=== PATIENT | female | born 1980 | race Caucasian/White ===

== ENCOUNTER → 2017-10-10 13:37 | Outpatient (REF) | payer MEDICARE, SELFPAY ==
[2017-10-10 18:44] LABS: TSH (W/Ref FT4) 1.55 uIU/mL (0.358-3.74)
== END ==
LOC: NCHCN 13:37
PROVIDERS: PCP Nurse Practitioner Family; Visit Provider Nurse Practitioner
DX: E03.9 Hypothyroidism, unspecified (principal)
CPT/HCPCS: 84443

== ENCOUNTER 2019-01-29 21:41 | Emergency (ER) | payer MEDICARE, SELFPAY ==
[2019-01-29 21:48] VITALS: BP 106/69; PULSE 89; RESP 16; TEMP 36.8; O2SAT 98
--- NOTE | 2019-01-29 21:56 | W.ED.GENAD ---
Discharge Plan Disposition Patient Disposition: HOME Discharge Details Chief Complaint: Orthopedic Clinical Impression: Sprain of left shoulder Primary Care Provider: Amanda Arias ED Provider: Aniceto Rutledge Home Meds and New Rx's Prescriptions: No Action multivitamin [Daily Multi-Vitamin] 1 EACH tablet 1 tab PO DAILY RF: 0 montelukast 10 MG tablet 10 mg PO DAILY RF: 0 levothyroxine [Synthroid] 50 MCG tablet 50 mcg PO DAILY RF: 0 Discharge Instructions Instructions: Shoulder Sprain (ED) Additional Instructions: Your x-rays were negative here in the emergency department. Most likely soft tissue injury possible rotator cuff involvement. It is very important that you ice the affected area. Take Tylenol 500 mg 2 tabs every 8 hours for pain. You can also take ibuprofen 200 mg 3 pills every 8 hours for pain. You should use simple sling for the next 24 to 48 hours for comfort. Do not use this longer than 48 hours. If your pain persist despite conservative therapy at home contact orthopedics for follow-up. Referrals: Gary Choe MD [ [facility] STAFF PHYSICIAN] - 2 weeks Medical Decision Making This is a nontoxic-appearing 39-year-old female presenting to the emergency department with a left shoulder injury status post slipping on the ice. No head or neck trauma. Vital signs stable and neurovascularly intact on exam. Physical exam demonstrate point tenderness along the posterior lateral aspect of the left shoulder. She does have the ability to gently actively range the left shoulder. X-rays are negative for acute fracture. Most likely ligamentous/tendon sprain. Discussed the utilization of a simple sling for the next 24 to 48 hours. Motrin and Tylenol pain regimens discussed. She should follow-up with orthopedics should her pain persist. HPI General Date/Time Provider Initiated Documentation: 01/29/19 21:56. HPI Narrative: Patient is a 39-year-old female with no significant past medical history who presents to the emergency department with a left shoulder injury. Patient states that she fell slipping on the ice landing on her left shoulder. She denies any head injury or LOC. No neck pain. She has been able to move the left shoulder however it is quite tender. She denies any numbness or tingling in the hand. Related Data Home Medications Medication Instructions Recorded Confirmed levothyroxine [Synthroid] 50 mcg PO DAILY 06/15/13 01/29/19 montelukast 10 mg PO DAILY 06/15/13 01/29/19 multivitamin [Multi Vitamin Daily] 1 tab PO DAILY 06/15/13 01/29/19 Allergies Allergy/AdvReac Type Severity Reaction Status Date / Time amoxicillin [Amoxicillin] AdvReac Intermediate Skin Rash Unverified 06/15/13 22:59 Penicillins AdvReac Intermediate Skin Rash Unverified 06/15/13 22:59 General Stated Complaint: Orthopedic PA: 4 Review of Systems ENT Ears, Nose, Mouth, and Throat: Denies dizziness and Denies neck pain Musculoskeletal Musculoskeletal: Denies back pain, Denies deformity, Denies joint swelling, Reports limited range of motion, Denies neck pain, Denies numbness, Denies stiffness and Denies tingling Neurologic Neurologic: Denies dizziness, Denies numbness and Denies tingling Hematologic/Lymphatic Hematologic/Lymphatic: Denies easy bleeding and Denies easy bruising PFSH Social History Smoking/Tobacco Use Status: Never Alcohol Intake: never Drug use: Never Do you feel safe at home: Yes Do you feel safe in your relationship?: Yes Exam Const General: cooperative, healthy appearing, comfortable and no acute distress Orientation: alert and oriented x3 HENMT Head: normal to inspection, no palpable skull fracture, normocephalic and atraumatic Eyes General: appearance normal, both eyes and all related structures Neck Neck: normal visual inspection, full ROM and trachea midline Chest Chest: normal inspection of the chest and normal palpation of entire chest wall Resp Effort & Inspection: normal respiratory effort and able to speak in complete sentences Cardio Rate: regular rate Pulses: radial pulses present and normal peripheral pulses Back/Spine/Pelvis Cervical Spine: normal cervical lordosis, cervical ROM normal, No cervical muscular tenderness and No cervical spinal tenderness Skin Trauma: no lacerations or abrasions Neuro Motor: muscle tone normal throughout Sensory Exam: no sensory deficits noted Extrem Left upper extremity: shoulder/upper arm Details: inspection abnormal, tenderness Location: of the proximal humerus and over the biceps tendon, axillary nerve sensory function normal and abnormal ROM Details: pain with active ROM; no swelling Course Vital Signs Vital signs: Vital Signs Temperature 36.8 C 01/29/19 21:48 Pulse 89 01/29/19 21:48 Respiratory Rate 16 01/29/19 21:48 Blood Pressure 106/69 01/29/19 21:48 Pulse Oximetry 98 01/29/19 21:48 Temperature 36.8 C 01/29/19 21:48 Pulse 89 01/29/19 21:48 Respiratory Rate 16 01/29/19 21:48 Respiratory Effort 01/29/19 21:50 Blood Pressure 106/69 01/29/19 21:48 Blood Pressure Position Supine 01/29/19 21:48 Pulse Oximetry 98 01/29/19 21:48 Oxygen Delivery Method Room Air 01/29/19 21:48 Oxygen Flow Rate 0 01/29/19 21:48 End Tidal Co2 1 01/29/19 21:48
--- NOTE | 2019-01-29 22:29 | DI.RAD_ITS ---
EXAM: XR SHOULDER LT COMPLETE 2+V CLINICAL HISTORY: left posteriolateral shoulder pain s/p fall. TECHNIQUE: 2D digital imaging was performed. COMPARISON: No exams were available for comparison FINDINGS: BONES: No acute fracture is present. No bony destructive lesion is seen. JOINTS: No dislocation present. SOFT TISSUE: Normal. IMPRESSION: Unremarkable radiographs of the left shoulder.
--- NOTE | 2019-01-29 22:48 | DI.VRAD_ITS ---
PROCEDURE INFORMATION: Exam: XR Left Shoulder Exam date and time: 01/29/2019 9:57 PM Age: 39 years old Clinical history: Pain and injury or trauma; Fall; Initial encounter; Blunt trauma (contusions or hematomas; Shoulder; Right TECHNIQUE: Imaging protocol: XR Left shoulder. Views: 2 or more views. COMPARISON: No relevant prior studies available. FINDINGS: Bones/joints: No suspicious osseous lytic or blastic lesion. No acute fracture or dislocation. Left acromioclavicular and coracoclavicular interval is within normal limits. Soft tissues: Normal. IMPRESSION: Unremarkable LEFT shoulder radiographs. Dictated and Authenticated by: Prasanth Kumar MD. Ordering:KARON Moreland MD
== END 2019-01-29 22:45 | disposition home or self-care (01) ==
PROVIDERS: Emergency Provider Physician Assistant; PCP Nurse Practitioner
DX: S43.402A Unspecified sprain of left shoulder joint, initial encounter (principal); W00.0XXA Fall on same level due to ice and snow, initial encounter
CPT/HCPCS: 99283; 73030; L3670

== ENCOUNTER 2019-03-30 11:49 | Outpatient (REF) | payer MEDICARE, SELFPAY ==
[2019-03-30 19:55] LABS: TSH (W/Ref FT4) 10.32 uIU/mL (0.36-3.74)
[2019-03-30 20:20] LABS: FREE T4 1.21 ng/dL (0.76-1.46)
== END 2019-03-30 12:09 ==
LOC: NCHCN 11:49
PROVIDERS: PCP Nurse Practitioner; Visit Provider Nurse Practitioner
DX: E03.9 Hypothyroidism, unspecified (principal)
CPT/HCPCS: 84439; 84443

== ENCOUNTER 2019-12-04 17:59 | Emergency (ER) | payer MEDICARE, MEDICAID, SELFPAY ==
--- NOTE | 2019-12-04 18:05 | ED.GENADUL_ITS ---
Discharge Plan Disposition Patient Disposition: HOME Condition: Improving Discharge Details Clinical Impression: Acute bronchitis, Rash Primary Care Provider: Amanda Arias ED Provider: Maryellen Veal Home Meds and New Rx's Prescriptions: New prednisone 20 mg tablet See Rx Instructions .ROUTE .COMPLEX Qty: 12 RF: 0 Continued multivitamin [Daily Multi-Vitamin] 1 EACH tablet 1 tab PO DAILY RF: 0 montelukast 10 MG tablet 10 mg PO DAILY RF: 0 levothyroxine [Synthroid] 50 MCG tablet 50 mcg PO DAILY RF: 0 Discharge Instructions Instructions: Acute Bronchitis (ED), Acute Rash (ED) Additional Instructions: Continue your regular medications as directed. Use the albuterol inhaler as needed and directed for shortness of breath, wheezing or cough. Take the steroids until finished. You can use [id number] topical hydrocortisone as directed for itching of your rash and obmz-[id number] topical antibiotic ointment for pain, redness or swelling associated with the rash. Follow-up with your primary care doctor in 1 week. Return to the emergency department with any worsening or new concerning symptoms. Discharge Data Discharge Date/Time-TO BE ENTERED AT DEPARTURE: 12/04/19 19:38 Discharge Physician: Maryellen Vela Medical Decision Making 1819 -- 39-year-old female with a history of asthma and hypothyroidism presents for cough with clear sputum, shortness of breath, and sensation of needles in her chest with coughing and rash on her hands and feet. Vitals within normal limits. She appears nontoxic. She is speaking in full sentences without signs of respiratory distress. She has scattered wheezing and rhonchi. She has a barely noticeable papule to the dorsal aspect of her right hand and a crusted healing papule to the plantar surface of her left midfoot. No evidence of cellulitis. She has no oral lesions making coxsackievirus less likely. Discussed with patient that her symptoms can be consistent with a viral syndrome, also consider acute bronchitis, pneumonia. She is PERC negative and history and presentation not consistent with ACS or dissection. Will give a DuoNeb, p.o. steroids, IM Toradol and check an EKG, chest x-ray and reassess. 1920 --chest x-ray negative for acute disease. EKG notes a rate of 81, sinus, T wave inversion in III, V3, no STEMI, nondiagnostic. Patient reassessed and she feels much better. We will send home with an inhaler as well as a prescription for prednisone. As she has no reported fever, a non- smoker and a negative chest x-ray, will hold on antibiotics at this time. Discussed with patient that she can try [id number] topical Benadryl or hydrocortisone for her rash but this appears nonspecific at this time. Advised to follow up with the primary care doctor for re-evaluation. Usual and customary return precautions given prior to discharge. Medical Records Medical records reviewed: Yes I reviewed the patient's medical records. Imaging Data Radiologic Study: Radiologist's impression: XR CHEST 2V PA LATERAL CLINICAL HISTORY: cough, sob, r/o acute disease TECHNIQUE: 2D digital imaging was performed. COMPARISON: No exams were available for comparison FINDINGS: MEDIASTINUM: Normal. HEART: Normal. PULMONARY VASCULATURE: Normal. LUNGS: Clear. PLEURAL SPACE: No pleural effusion or pneumothorax. BONE:Normal. OTHER FINDINGS:Normal. IMPRESSION: No acute pulmonary findings. Lab Data Lab results reviewed: Yes I reviewed the patient's lab results. ECG Data Attestation: I personally reviewed and interpreted this ECG (s) as follows: Interpretation: Rate of 81, sinus, T wave inversion in 3 and V3. No old EKG to compare. No acute ST elevation or depression. ME 140. QRS 77. QTc 410. HPI General Mode of arrival: ambulatory . Date/Time Provider Initiated Documentation: 12/04/19 18:00 . Limitations to Documentation: no limitations . Information obtained by: patient . HPI Narrative: Patient is a 39-year-old female with a history of asthma and hypothyroidism who presents for cough with clear sputum, shortness of breath and sensation of feeling needles in her chest with coughing. She also noted a rash to her right hand and left foot and states she was concerned that she may have whooping cough due to her rash and high- pitched cough. She denies any fever, headache, vomiting, diarrhea, abdominal pain, recent travel or recent known sick contacts. She is unsure of her immunization status. Related Data Home Medications Medication Instructions Recorded Confirmed levothyroxine [Synthroid] 50 mcg PO DAILY 06/15/13 12/04/19 montelukast 10 mg PO DAILY 06/15/13 12/04/19 multivitamin [Daily Multi-Vitamin] 1 tab PO DAILY 06/15/13 12/04/19 prednisone See Rx Instructions .ROUTE 12/04/19 .COMPLEX #12 tab Previous Rx's Medication Instructions Recorded prednisone See Rx Instructions .ROUTE 12/04/19 .COMPLEX #12 tab Allergies Allergy/AdvReac Type Severity Reaction Status Date / Time loratadine Allergy Unverified 12/04/19 18:18 amoxicillin [Amoxicillin] AdvReac Intermediate Skin Rash Unverified 12/04/19 18:17 Penicillins AdvReac Intermediate Skin Rash Unverified 12/04/19 18:17 General PA: 4 Review of Systems All systems reviewed & are unremarkable except as noted in HPI and below Constitutional Constitutional: Reports as per HPI, Denies chills and Denies fever(s) Eyes Eyes: Denies blurry vision ENT Ears, Nose, Mouth, and Throat: Denies dizziness, Denies sore throat and Denies throat swelling Cardiovascular Cardiovascular: Denies chest pain and Reports dyspnea Respiratory Respiratory: Reports cough and Reports dyspnea Gastrointestinal Gastrointestinal: Denies abdominal pain, Denies diarrhea and Denies vomiting Genitourinary Genitourinary: Denies hematuria and Denies dysuria Musculoskeletal Musculoskeletal: Denies back pain and Denies numbness Integumentary/Breasts Skin/Breast: Denies lesions and Denies rash Neurologic Neurologic: Denies dizziness, Denies localized weakness and Denies numbness Allergic/Immunologic Allergic/Immunologic: Denies throat swelling [facility] Medical History (Updated 12/04/19 @ 19:24 by Maryellen Vela DO) Asthma Hypothyroidism Surgical History (Updated 12/04/19 @ 18:50 by Maryellen Vela DO) H/O section History of knee surgery Social History Smoking/Tobacco Use Status: Never Alcohol Intake: never Drug use: Never Do you feel safe at home: Yes Do you feel safe in your relationship?: Yes Exam Const General: cooperative, healthy appearing and no acute distress HENMT Head: normal to inspection Ears: hearing grossly normal bilaterally, external ears normal and TM's normal bilaterally General nose exam: external nose normal Face and sinus: normal facial exam Mouth: oral mucosae normal Throat: posterior oropharynx normal Eyes General: appearance normal, both eyes and all related structures Neck Neck: normal visual inspection Resp Effort & Inspection: normal respiratory effort and able to speak in complete sentences Auscultation: rhonchi (minimal scattered) and wheezes scattered wheezes Cardio Rate: regular rate Rhythm: regular rhythm GI Inspection: normal to inspection Palpation: soft, no guarding, no masses and nontender Skin General skin exam: no rashes or lesions noted Neuro General: patient alert, patient awake and patient oriented x3 Motor: muscle tone normal throughout Extrem General: normal to inspection and full ROM Psych Appearance: grossly normal Affect: normal affect
[2019-12-04 18:14] VITALS: BP 110/66; PULSE 94; RESP 16; TEMP 36.4; O2SAT 97
--- NOTE | 2019-12-04 18:30 | RT.EKG_ITS ---
APPROVED REPORT Exam: Resting ECG Patient Location: E HR:81 bpm ECG Measurements Heart Rate 81 AXIS NE 140 P 35 QRSd 77 QRS -3 QT 353 T -4 QTc 410 Conclusion Sinus rhythm...normal P axis, V-rate 60- 99 Low voltage, precordial leads...precordial leads <1.0mV. T wave inversion in III, V3. No STEMI. I have reviewed and interpreted ECG and agree with software generated interpretation. Nonspecific T abnormalities, anterior leads...T <-0.10mV, V2-V4
[2019-12-04] MEDS: predniSONE 20 MG TAB 60 MG PO (18:42)
--- NOTE | 2019-12-04 18:57 | DI.RAD_ITS ---
EXAM: XR CHEST 2V PA LATERAL CLINICAL HISTORY: cough, sob, r/o acute disease TECHNIQUE: 2D digital imaging was performed. COMPARISON: No exams were available for comparison FINDINGS: MEDIASTINUM: Normal. HEART: Normal. PULMONARY VASCULATURE: Normal. LUNGS: Clear. PLEURAL SPACE: No pleural effusion or pneumothorax. BONE:Normal. OTHER FINDINGS:Normal. IMPRESSION: No acute pulmonary findings. DATA REPOSITORY: RADIATION DOSE DELIVERED:
[2019-12-04 19:00] VITALS: PULSE 94; RESP 16; RESP 4; O2SAT 97
[2019-12-04] MEDS: Albuterol/Ipratropium 3 ML UPD VIAL UPD (19:00)
--- NOTE | 2019-12-04 19:05 | DI.VRAD_ITS ---
PROCEDURE INFORMATION: Exam: XR Chest, 2 Views Exam date and time: 12/04/2019 6:58 PM Age: 39 years old Clinical indication: Cough and shortness of breath TECHNIQUE: Imaging protocol: XR of the chest Views: 2 views. COMPARISON: No relevant prior studies available. FINDINGS: Lungs: Unremarkable. No consolidation. Pleural space: Unremarkable. No pleural effusion. No pneumothorax. Heart/Mediastinum: Unremarkable. No cardiomegaly. Bones/joints: Unremarkable. IMPRESSION: No acute findings. Dictated and Authenticated by: Malcolm Gloria MD. Ordering:ALEXANDRE Bojorquez MD
[2019-12-04] MEDS: Ketorolac 60 MG/2 ML VIAL IM (19:06)
[2019-12-04] MEDS: Inhaler, Assist Device 1 EACH MC (19:40)
== END 2019-12-04 19:38 | disposition home or self-care (01) ==
PROVIDERS: Emergency Provider Physician Assistant; PCP Nurse Practitioner
DX: J44.0 Chronic obstructive pulmonary disease with (acute) lower respiratory infection (principal); J20.9 Acute bronchitis, unspecified; J45.909 Unspecified asthma, uncomplicated; R21 Rash and other nonspecific skin eruption
CPT/HCPCS: 93005; 94640; 96372; 99284; 71046; 93010; 99285; J1885; J7512; J7620

== ENCOUNTER 2019-12-16 15:07 | Outpatient (REF) | payer MEDICARE, MEDICAID, SELFPAY ==
[2019-12-16 19:45] LABS: Glucose 107 mg/dL (74-106); TSH (W/Ref FT4) 4.08 uIU/mL (0.36-3.74)
[2019-12-16 20:15] LABS: FREE T4 1.03 ng/dL (0.76-1.46)
== END 2019-12-16 15:27 ==
LOC: NCHCN 15:07
PROVIDERS: PCP Nurse Practitioner; Visit Provider Nurse Practitioner
DX: Z13.1 Encounter for screening for diabetes mellitus (principal); E03.9 Hypothyroidism, unspecified
CPT/HCPCS: 82947; 84439; 84443

== ENCOUNTER 2020-11-07 16:27 | Outpatient (REF) | payer MEDICARE, MEDICAID, SELFPAY ==
[2020-11-07 20:44] LABS: TSH 2.37 uIU/mL (0.36-3.74)
== END 2020-11-07 16:28 | disposition home or self-care (01) ==
LOC: NCHCN 16:27
PROVIDERS: PCP Nurse Practitioner; Visit Provider Nurse Practitioner
DX: E03.9 Hypothyroidism, unspecified (principal)
CPT/HCPCS: 84443

== ENCOUNTER 2021-10-10 19:27 | Emergency (ER) | payer MEDICARE, MEDICAID, SELFPAY ==
[2021-10-10 19:43] VITALS: BP 100/83; PULSE 88; RESP 18; TEMP 36.3; O2SAT 98
--- NOTE | 2021-10-10 20:20 | W.ED.GENAD ---
Discharge Plan Disposition Patient Disposition: HOME Condition: Stable Discharge Details Clinical Impression: Conjunctivitis Primary Care Provider: Amanda Arias ED Provider: Mitch Castaneda Home Meds and New Rx's Prescriptions: New polymyxin B sulf-trimethoprim 10,000 unit- 1 mg/mL drops 1 drp ophthalmic (eye) Q3H 7 Days Qty: 10 0RF Rx Instructions: while awake; do not exceed 6 doses in 24 hours No Action multivitamin [Daily Multi-Vitamin] 1 EACH tablet 1 tab PO DAILY Label Comments: pt no longer taking 01/29/19 montelukast 10 MG tablet 10 mg PO DAILY levothyroxine [Synthroid] 50 MCG tablet 50 mcg PO DAILY prednisone 20 mg tablet See Rx Instructions .ROUTE .COMPLEX Qty: 12 0RF Rx Instructions: Take 3 tabs daily for 2 days, then 2 tabs daily for 2 days, then 1 tab daily for 2 days Discharge Instructions Instructions: Conjunctivitis (ED) Additional Instructions: You may continue to use rcbx-wfb-sglgusy eyedrops and take ibuprofen as needed for discomfort. You may have viral or allergenic conjunctivitis given your exam today. You may hold off on the antibiotics for the next 24 to 48 hours to see if you improve with rbis-fut-xgfcqaa medication. If you notice any new or significant worsening of symptoms please start the antibiotics immediately and for any further concerns feel free to follow-up with your primary care provider or return to the emergency department. Referrals: Amanda Arias [Primary Care Provider] - (As needed for reassessment) Discharge Data Discharge Date/Time-TO BE ENTERED AT DEPARTURE: 10/10/21 20:28 Medical Decision Making Patient presenting to the emergency department for chief complaint of conjunctivitis. Patient has a red irritated right eye that started this morning. Patient patient denies any other systemic symptoms. Physical exam is consistent with conjunctivitis of right eye. No purulent drainage noted, no orbital cellulitis, EOMs intact without pain, exam otherwise unremarkable. Will recommend patient to take ibuprofen for discomfort along with use rqvv-yov-lpaqyfp drops. Patient does not use contact lenses. We will send in prescription for antibiotic but did not inform patient that she could wait 24 to 48 hours as I suspect that this could be viral or allergenic in nature given overall mild appearance. After discussion of diagnosis and plan of care patient has no further needs, questions, or concerns and states clear understanding to return to the emergency department for any worsening symptoms. This documentation was generated using [employer] dictation system, please disregard any oddities of phrase or misspellings. HPI General Mode of arrival: ambulatory. Date/Time Provider Initiated Documentation: 10/10/21 19:50. Limitations to Documentation: no limitations. Information obtained by: patient and RN notes reviewed. History of Present Illness 41 year old F presents to the emergency department with the chief complaint of right eye reddness, described as mild, with intensity rated at 1. Quality is described as aching, and is localized to the eyes and right. Patient reports no radiation. Patient started experiencing this hour(s) (12) and it has been constant. No relieving factors improve symptom(s), No exacerbating factors reported . Patient notes no other symptoms.. Patient did receive the following treatments prior to arrival, other (OTC drops) Related Data Home Medications Medication Instructions Recorded Confirmed levothyroxine 50 mcg tablet 50 mcg PO DAILY 06/15/13 12/04/19 (Synthroid) montelukast 10 mg tablet 10 mg PO DAILY 06/15/13 12/04/19 multivitamin (Daily Multi-Vitamin 1 tab PO DAILY 06/15/13 12/04/19 tablet) prednisone 20 mg tablet See Rx Instructions .Route 12/04/19 .COMPLEX #12 tabs polymyxin B sulfate 10,000 1 drp ophthalmic (eye) Q3H 7 days 10/10/21 unit-trimethoprim 1 mg/mL eye drops #10 mL Previous Rx's Medication Instructions Recorded prednisone 20 mg tablet See Rx Instructions .Route 12/04/19 .COMPLEX #12 tabs polymyxin B sulfate 10,000 1 drp ophthalmic (eye) Q3H 7 days 10/10/21 unit-trimethoprim 1 mg/mL eye drops #10 mL Allergies Allergy/AdvReac Type Severity Reaction Status Date / Time loratadine Allergy Unverified 12/04/19 18:18 amoxicillin [Amoxicillin] AdvReac Intermediate Skin Rash Unverified 12/04/19 18:17 Penicillins AdvReac Intermediate Skin Rash Unverified 12/04/19 18:17 General Stated Complaint: EyeProblem AP: 4 Review of Systems Narrative: 6 systems reviewed and unremarkable except what is marked below. Constitutional Constitutional: Denies chills, Denies fever(s) and Denies headache(s) Eyes Eyes: Reports as per HPI, Denies diplopia, Reports eye discharge, Reports irritation, Reports itchy eyes and Denies other visual disturbances ENT Ears, Nose, Mouth, and Throat: Denies otalgia, Denies facial pain, Denies headache(s), Denies nasal congestion and Denies nasal discharge Neurologic Neurologic: Denies headache(s) Allergic/Immunologic Allergic/Immunologic: Reports itchy eyes PFSH All Active Problems (Updated 10/10/21 @ 20:22 by Mitch Castaneda NP) Conjunctivitis (Acute) Medical History (Updated 10/10/21 @ 20:22 by Mitch Castaneda NP) Asthma Hypothyroidism Surgical History (Updated 12/04/19 @ 18:50 by Maryellen Vela DO) H/O section History of knee surgery Social History Smoking/Tobacco Use Status: Never Smoking risk assessment performed?: Yes Alcohol Intake: never Drug use: Never Substance use type: does not use Do you feel safe at home: Yes Do you feel safe in your relationship?: Yes Exam Const General: cooperative, no acute distress and not ill appearing Orientation: alert, awake and oriented x3 HENMT Head: normal to inspection Ears: hearing grossly normal bilaterally Eyes Visual Robledo: normal visual robledo by confrontation Alignment and Position: alignment normal Periorbital: periorbital findings normal Eyelids: eyelids normal Conjunctivae: conjunctival abnormality right conjunctival injection and discharge other (clear watery) Cornea: corneas normal Pupils: PERRL EOM: EOM intact bilaterally Resp Effort & Inspection: normal respiratory effort, able to speak in complete sentences and no respiratory distress Skin General skin exam: no rashes or lesions noted Neuro General: patient alert, patient awake, patient oriented x3, moves all extremities and no focal motor deficits Sensory Exam: no sensory deficits noted Course Vital Signs Vital signs: Vital Signs Temperature 36.3 C L 10/10/21 19:43 Pulse 88 10/10/21 19:43 Respiratory Rate 18 10/10/21 19:43 Blood Pressure 100/83 10/10/21 19:43 Pulse Oximetry 98 10/10/21 19:43 Temperature 36.3 C L 10/10/21 19:43 Temperature Source Rectal 10/10/21 19:43 Pulse 88 10/10/21 19:43 Respiratory Rate 18 10/10/21 19:43 Blood Pressure 100/83 10/10/21 19:43 Blood Pressure Position Sitting 10/10/21 19:43 Pulse Oximetry 98 10/10/21 19:43 Oxygen Delivery Method Room Air 10/10/21 19:43 Oxygen Flow Rate 0 10/10/21 19:43
[2021-10-10] MEDS: Ibuprofen 600 MG TAB PO (20:24)
[2021-10-10 20:25] VITALS: BP 134/76; PULSE 68; RESP 18; TEMP 36.3; O2SAT 98
== END 2021-10-10 20:28 | disposition home or self-care (01) ==
PROVIDERS: Emergency Provider Nurse Practitioner Family; PCP Nurse Practitioner
DX: H10.9 Unspecified conjunctivitis (principal); J45.909 Unspecified asthma, uncomplicated
CPT/HCPCS: 99283; 99284

== ENCOUNTER 2021-12-28 15:25 | Outpatient (REF) | payer MEDICARE, MEDICAID, SELFPAY ==
[2021-12-28 15:45] LABS: Abs Immature Grans 0.02 10^3/uL (0.0-0.06); Absolute Basophil Count 0.08 10^3/uL (0.0-0.2); Absolute Eosinophil Count 0.58 10^3/uL (0.0-0.7); Absolute Lymphocyte Count 2.62 10^3/uL (1.2-3.4); Absolute Monocyte Count 0.49 10^3/uL (0.1-0.8); Absolute Neutrophil Count 2.99 10^3/uL (1.2-6.7); Basophils % 1.2; Eosinophils % 8.6; HCT 37.5 % (36.0-46.0); HGB 12.8 g/dL (11.2-15.7); Immature Grans % 0.3; Lymphocytes % 38.6; MCH 30.5 pg (27.0-33.0); MCHC 34.1 % (32.0-36.0); MCV 89 fL (80-95); MPV 10.8 fL (8.0-11.0); Monocytes % 7.2; Neutrophils % 44.1; Platelet Count 330 10^3/uL (130-400); RDW 12.7 % (11.7-14.6); RDW-SD 41.4 fL; WBC 6.78 10^3/uL (4.4-10.8)
[2021-12-28 16:30] LABS: ALT 20 U/L (14-59); AST 20 U/L (15-37); Albumin 3.8 g/dL (3.4-5.0); Alkaline Phosphatase 61 U/L (46-116); Anion Gap 9.7 mmol/L (3-11); BUN 8 mg/dL (7-18); Bilirubin, Total 0.2 mg/dL (0.2-1.0); CO2 25.3 mmol/L (21.0-32.0); CREATININE 0.8 mg/dL (0.55-1.02); Calcium 9.8 mg/dL (8.5-10.1); Calculated LDL 159 mg/dL (<100); Chloride 106 mmol/L (98-107); Cholesterol 216 mg/dL (<200); Estimated GFR 96.06 (mL/min/1.73m2); Glucose 93 mg/dL (74-106); HDL Cholesterol 42 mg/dL (40-60); Potassium 3.6 mmol/L (3.5-5.1); Sodium 141 mmol/L (136-145); TSH (W/Ref FT4) 1.49 uIU/mL (0.36-3.74); Total Protein 6.8 g/dL (6.4-8.2); Triglyceride 76 mg/dL (<150)
== END 2021-12-28 15:26 | disposition home or self-care (01) ==
LOC: NCHCN 15:25
PROVIDERS: PCP Nurse Practitioner Family; Visit Provider Nurse Practitioner Family
DX: E03.9 Hypothyroidism, unspecified (principal); F41.8 Other specified anxiety disorders; F33.9 Major depressive disorder, recurrent, unspecified; J45.20 Mild intermittent asthma, uncomplicated; G47.33 Obstructive sleep apnea (adult) (pediatric)
CPT/HCPCS: 80053; 80061; 84443; 85025

== ENCOUNTER 2023-02-01 16:10 | Outpatient (REF) | payer MEDICARE, MEDICAID, SELFPAY ==
[2023-02-01 15:45] LABS: ESR 4 mm/hr (0-20)
[2023-02-01 15:47] LABS: Abs Immature Grans 0.02 10^3/uL (0.0-0.06); Absolute Basophil Count 0.06 10^3/uL (0.0-0.2); Absolute Eosinophil Count 0.49 10^3/uL (0.0-0.7); Absolute Lymphocyte Count 2.41 10^3/uL (1.2-3.4); Absolute Monocyte Count 0.46 10^3/uL (0.1-0.8); Absolute Neutrophil Count 3.41 10^3/uL (1.2-6.7); Basophils % 0.9; Eosinophils % 7.2; HCT 39.1 % (36.0-46.0); HGB 13.3 g/dL (11.2-15.7); Immature Grans % 0.3; Lymphocytes % 35.2; MCH 30.2 pg (27.0-33.0); MCV 89 fL (80-95); MPV 10.6 fL (8.0-11.0); Monocytes % 6.7; Neutrophils % 49.7; Platelet Count 292 10^3/uL (130-400); RBC 4.41 10^6/uL (3.93-5.22); RDW 12.7 % (11.7-14.6); RDW-SD 41.6 fL; WBC 6.85 10^3/uL (4.4-10.8)
[2023-02-01 16:10] LABS: ALT 18 U/L (14-59); AST 15 U/L (15-37); Albumin 3.7 g/dL (3.4-5.0); Alkaline Phosphatase 56 U/L (46-116); Anion Gap 7.7 mmol/L (3-11); BUN 11 mg/dL (7-18); Bilirubin, Total 0.3 mg/dL (0.2-1.0); C-Reactive Protein 0.08 mg/dL (0.0-0.3); CO2 27.3 mmol/L (21.0-32.0); CREATININE 0.6 mg/dL (0.55-1.02); Calcium 10.4 mg/dL (8.5-10.1); Chloride 105 mmol/L (98-107); Estimated GFR 115.57 (mL/min/1.73m2); Glucose 79 mg/dL (74-106); Potassium 4.1 mmol/L (3.5-5.1); Sodium 140 mmol/L (136-145); TSH (W/Ref FT4) 3.19 uIU/mL (0.36-3.74); Total Protein 6.9 g/dL (6.4-8.2)
[2023-02-01 22:07] LABS: Rheumatoid Factor <8.6 IU/mL (<12.0)
[2023-02-03 23:03] LABS: Anaplasma phagocytophilum Negative (Negative); B. miyamotoi PCR Negative (Negative); Babesia divergens/MO-1 Negative (Negative); Babesia duncani Negative (Negative); Babesia microti Negative (Negative); Ehrlichia chaffeensis Negative (Negative); Ehrlichia ewingii/canis Negative (Negative); Ehrlichia muris eauclairensis Negative (Negative)
[2023-02-04 11:37] LABS: Lyme Ab w Rflx to Lyme Confirm Negative (Negative)
[2023-02-04 15:57] LABS: ANA Interpretation Negative (Negative)
== END 2023-02-01 16:11 | disposition home or self-care (01) ==
LOC: NCHCN 16:10
PROVIDERS: PCP Nurse Practitioner Family; Visit Provider Nurse Practitioner Family
DX: R53.83 Other fatigue (principal)
CPT/HCPCS: 80053; 85652; 87798; 83036; 84443; 85025; 86038; 86140; 86431; 86618

== ENCOUNTER 2024-08-28 01:16 | Emergency (ER) | payer MEDICARE, SELFPAY ==
--- NOTE | 2024-08-28 01:19 | ED.GENADUL_ITS ---
Discharge Plan Disposition Patient Disposition: Home Condition: Good Discharge Details Clinical Impression: Allergic reaction Primary Care Provider: NAVID LORENZO ED Provider: Dani Raza Meds and New Rx's Prescriptions: New epinephrine [EpiPen 2-[employer]] 0.3 mg/0.3 mL auto-injector 0.3 mg IM Q5-15M PRN (Reason: anaphylaxis) Qty: 2 0RF Rx Instructions: do not exceed 3 doses per episode Continued multivitamin [Daily Multi-Vitamin] 1 EACH tablet 1 tab PO DAILY montelukast 10 MG tablet 10 mg PO DAILY levothyroxine [Synthroid] 50 MCG tablet 50 mcg PO DAILY Discharge Instructions Instructions: Allergic Reaction ED Additional Instructions: You were seen for probable allergic reaction to pistachio which thankfully mostly resolved on its own. Avoid pistachio and other tree nuts for the time being. Follow-up with primary care as you may need referral for allergy testing. A prescription for EpiPen's have been sent to pharmacy in case of any severe allergic reactions in the future. Any milder symptoms similar to tonight should be treated with diphenhydramine 25 to 50 mg. Return to ED for any throat swelling, difficulty breathing, syncope, other concerns. Referrals: NAVID LORENZO, [employer] [Primary Care Provider, Medicine] HPI General Mode of arrival: ambulatory . Date/Time Provider Initiated Documentation: 08/28/24 01:19 . Limitations to Documentation: no limitations . Information obtained by: patient and RN notes reviewed . HPI Narrative: Patient presents to ED with complaint of possible allergic reaction. Patient ate a pistachio macaroon this evening. She almost immediately developed tingling and numbness as well as some swelling to her lips followed by tingling and numbness to her tongue and a sensation of throat tightening. She kind of fe lt hot and flushed all over but did not develop hives or pruritus. She felt a little lightheaded but had no syncope. She had no GI symptoms. Her gave her an albuterol inhaler to use which she thinks maybe helped some. During the ride to the ED her symptoms have completely resolved other than some tingling continuing in the upper lip. She has not had this problem before. She has had pistachios in the past. Related Data Home Medications ?Medication ?Instructions ?Recorded ?Confirmed levothyroxine 50 mcg tablet 50 mcg PO DAILY 06/15/13 0 08/28/24 (Synthroid) montelukast 10 mg tablet 10 mg PO DAILY 06/15/1308/18 multivitamin (Daily Multi-Vitamin 1 tab PO DAILY 06/1508/28/24 tablet) epinephrine 0.3 mg/0.3 mL 0.3 mg (0.3 mL) IM Q5-15M [place] N 08/28/24 injection, auto-injector (EpiPen anaphylaxis #2 ea [employer]) Previous Rx's ?Medication ?Instructions ?Recorded epinephrine 0.3 mg/0.3 mL 0.3 mg (0.3 mL) IM Q5-15M [place] N 08/28/24 injection, auto-injector (EpiPen anaphylaxis #2 ea [employer]) Allergies Allergy/AdvReac Type Severity Reaction Status Date / Time loratadine Allergy rash Unverified 08/28/24 01:24 amoxicillin (Amoxicillin) AdvReac Intermediate Skin Rash Unverified 08/28/24 01:24 Penicillins AdvReac Intermediate Skin Rash Unverified 08/28/24 01:24 General PA: 4 Exam Narrative Exam Narrative: Const: WDWN female in NAD. VS per triage. HEENT: NC/AT. Normal facial exam. Normal lips, tongue, oropharynx. Neck: Supple. Trachea midline. No stridor. Lungs: Normal respiratory effort. Lungs are clear. Cor: RRR without murmur. Neuro: A+O x 3. Normal speech, mentation, gait. Cranial nerves II - XII grossly intact. No gross motor or sensory deficit. Medical Decision Making Patient does appear to have had a mild allergic type reaction to pistachio. Symptoms have resolved for the most part without intervention as I do not suspect that the albuterol actually would have helped in regards to her symptoms. I will give her a dose of Benadryl. Prescriptions for EpiPen's have been sent to pharmacy. Use of Benadryl also discussed. I have asked her to avoid pistachio and other tree nuts for the time being. She will need to follow-up with primary care and likely needs referral for allergy testing. Return precautions provided. [facility] All Active Problems Allergic reaction (Acute) Medical History Asthma Hypothyroidism Surgical History History of knee surgery H/O section Social History Smoking/Tobacco Use Status: Never Smoking risk assessment performed?: Yes Alcohol Intake: never Drug use: Never Substance use type: does not use Do you feel safe at home: Yes Do you feel safe in your relationship?: Yes
[2024-08-28 01:20] VITALS: BP 102/74; PULSE 86; RESP 18; TEMP 36.8; O2SAT 97
[2024-08-28] MEDS: diphenhydrAMINE 25 MG CAP 50 MG PO (01:35)
[2024-08-28 01:43] VITALS: PULSE 83; RESP 18; O2SAT 97
== END 2024-08-28 01:43 | disposition home or self-care (01) ==
PROVIDERS: Emergency Provider Emergency Medicine; PCP Nurse Practitioner Family
DX: T78.1XXA Other adverse food reactions, not elsewhere classified, initial encounter (principal); R20.0 Anesthesia of skin; R22.1 Localized swelling, mass and lump, neck; E08.9 Diabetes mellitus due to underlying condition without complications; X58.XXXA Exposure to other specified factors, initial encounter
CPT/HCPCS: 99283

== ENCOUNTER 2024-10-01 15:45 | Outpatient (REF) | payer MEDICARE, SELFPAY ==
[2024-10-01 19:04] LABS: ALT 17 U/L (14-59); AST 23 U/L (15-37); Albumin 3.7 g/dL (3.4-5.0); Alkaline Phosphatase 64 U/L (46-116); Anion Gap 8.4 mmol/L (3-11); BUN 12 mg/dL (7-18); Bilirubin, Total 0.5 mg/dL (0.2-1.0); CO2 27.6 mmol/L (21.0-32.0); Calcium 10.1 mg/dL (8.5-10.1); Chloride 106 mmol/L (98-107); Estimated GFR 110.67 (mL/min/1.73m2); Glucose 85 mg/dL (74-106); Potassium 3.6 mmol/L (3.5-5.1); Sodium 142 mmol/L (136-145); TSH 4.23 uIU/mL (0.36-3.74); Total Protein 7.1 g/dL (6.4-8.2)
== END 2024-10-01 15:46 | disposition home or self-care (01) ==
LOC: NCHCN 15:45
PROVIDERS: PCP Nurse Practitioner Family; Visit Provider Nurse Practitioner Family
DX: E03.9 Hypothyroidism, unspecified (principal); F41.9 Anxiety disorder, unspecified; F43.9 Reaction to severe stress, unspecified
CPT/HCPCS: 80053; 84439; 84443

== ENCOUNTER 2024-12-09 01:21 | Outpatient (CLI) | payer MEDICARE, SELFPAY ==
--- NOTE | 2024-12-09 12:25 | DI.MAMMO_ITS ---
Exam(s) MAMMO SCREENING EXAM: MAMMO SCREENING CLINICAL HISTORY: screening TECHNIQUE: Bilateral full field digital CC and MLO mammographic images were obtained with 3D tomosynthesis and utilizing computer aided detection (CAD). COMPARISON: This is a baseline examination. There are no priors for comparison. FINDINGS: Masses/Architectural Distortion: There is an area of asymmetric breast tissue in the upper outer quadrant of the left breast. It lies 10 cm from the nipple. Microcalcifications: No suspicious pleomorphic-type are seen. Skin Thickening/Nipple Retraction: None. IMPRESSION: 1. Area of asymmetric breast tissue in the upper outer quadrant of the left breast. 2. This area should be further evaluated with a spot compression view. Ultrasound may be indicated at that time. BI-RADS Category 0 - Incomplete: Need additional imaging evaluation Breast Density - Category A - The breast are almost entirely fatty. Breast density Category C or D implies that the patient has dense breast tissue. Dense breast tissue can make it harder to find cancer on a mammogram. Dense breast tissue is also associated with an increased risk of breast cancer. This information about the result of the mammogram report was provided to the patient to raise their awareness. Use this report when you speak with the patient about their risks for breast cancer, which includes their family history. At that time, you may recommend additional screening tests (Ultrasound or MRI) as these tests may add significant information. A negative radiographic report should not delay biopsy if a dominant or clinically suspicious mass is present. Up to ten percent of cancers are not identified on mammography. A negative report may reinforce clinical impression. Adenosis and dense breasts may obscure an underlying neoplasm. False positive reports average 6 to 10%. Patient will receive a letter notifying them of these results.
== END 2024-12-09 01:41 ==
LOC: DI 01:21
PROVIDERS: PCP Nurse Practitioner Family; Visit Provider Nurse Practitioner Women's Health
DX: Z12.31 Encounter for screening mammogram for malignant neoplasm of breast (principal); N64.89 Other specified disorders of breast
CPT/HCPCS: 77063; 77067

== ENCOUNTER → 2025-02-04 00:37 | Outpatient (CLI) | payer MEDICARE, SELFPAY ==
--- NOTE | 2025-02-04 | DI.MAMMO_ITS ---
Exam(s) MG MAMMO SCREEN CALL BACK UNI US BREAST LT COMPLETE EXAM: MG MAMMO SCREEN CALL BACK UNI and U/S breast LT complete CLINICAL HISTORY: F/U ABNL MAMMO, ASYMMETRIC BREAST TISSUE LT. TECHNIQUE: Craniocaudal and mediolateral oblique spot digital Mammography views of the left breast with Computer Aided Diagnosis followed by Tomosynthesis and complete left breast ultrasound. All 4 quadrants of the left breast were evaluated in addition to the left axilla and left retroareolar region. COMPARISON: Comparison is made with baseline mammogram. FINDINGS: Mammography/Tomosynthesis: Masses/Architectural Distortion: The asymmetric breast tissue in the upper outer quadrant persists. No discrete mass or area of architectural distortion is seen. Microcalcifictions: No suspicious pleomorphic-type are seen. Skin Thickening/Nipple Retraction: None. Complete left breast US: Echotexture: Normal appearance of the glandular tissue. Shadowing: No suspicious foci. Cyst: None. Solid lesions: None seen. Ductal dilation: None. IMPRESSION: 1. No evidence of malignancy is noted. 2. A six-month follow-up left mammogram is requested for re-evaluation. 3. The findings were discussed with the patient on the date of the examination. BI-RADS Category 3 - 6 month - Probably Benign Finding: Recommend follow-up imaging in 6 months Breast Density - Category B - There are scattered areas of fibroglandular density. Breast density Category C or D implies that the patient has dense breast tissue. Dense breast tissue can make it harder to find cancer on a mammogram. Dense breast tissue is also associated with an increased risk of breast cancer. This information about the result of the mammogram report was provided to the patient to raise their awareness. Use this report when you speak with the patient about their risks for breast cancer, which includes their family history. At that time, you may recommend additional screening tests (Ultrasound or MRI) as these tests may add significant information. A negative radiographic report should not delay biopsy if a dominant or clinically suspicious mass is present. Up to ten percent of cancers are not identified on mammography. A negative report may reinforce clinical impression. Adenosis and dense breasts may obscure an underlying neoplasm. False positive reports average 6 to 10%. Patient will receive a letter notifying them of these results.
== END ==
PROVIDERS: PCP Nurse Practitioner Family; Visit Provider Nurse Practitioner Women's Health
DX: R92.8 Other abnormal and inconclusive findings on diagnostic imaging of breast (principal); Z12.31 Encounter for screening mammogram for malignant neoplasm of breast
CPT/HCPCS: 76642; 77063; 77067